=== PATIENT | female | born 1970 | race Caucasian/White ===

== ENCOUNTER 2019-03-19 19:30 | Emergency (ER) | payer OTHER ==
[~2019-03-19] VITALS: Ht 152.4 cm; Wt 56.7 kg
[2019-03-19] MEDS ORDERED: FAMOTIDINE 20MG/2ML VIAL IV STA (20:04)
[2019-03-19] MEDS ORDERED: MORPHINE SULFATE 4 MG/ML CPJ (NOT FOR IM USE) IV STA (20:04)
[2019-03-19] MEDS ORDERED: ONDANSETRON HCL 4MG/2ML INJ IV STA (20:04)
[2019-03-19] MEDS ORDERED: KETOROLAC 30MG/ML VIAL IV STA (20:04)
[2019-03-19] MEDS ORDERED: SODIUM CHLORIDE 0.9% 1,000 ML IV ONE (20:04)
[2019-03-19 21:23] LABS: COLOR URINE YELLOW (YELLOW); KETONES URINE NEGATIVE (NEGATIVE); LEUKOCYTE ESTERASE URINE NEGATIVE (NEGATIVE); NITRITE URINE NEGATIVE (NEGATIVE); OCCULT BLOOD URINE 2+ (NEGATIVE); PH URINE 7.5 (4.5-8.0); PROTEIN URINE 1+ (NEGATIVE); UROBILINOGEN URINE 0.2 E.U./dL (0.2-1.0)
[2019-03-19 21:27] LABS: CLARITY URINE HAZY (CLEAR)
[2019-03-19 21:29] LABS: CHLORIDE 102 mEq/L (98-107); PROTHROMBIN TIME 10.1 sec (9.6-11.0)
[2019-03-19 21:35] LABS: ETHANOL BLOOD < 10 mg/dL
[2019-03-19 21:38] LABS: *AMPHETAMINES SCREEN URINE NEGATIVE (NEGATIVE); *BARBITURATES SCREEN URINE NEGATIVE (NEGATIVE); *BENZODIAZEPINES SCREEN URINE NEGATIVE (NEGATIVE); CANNABINOID URINE SCREEN NEGATIVE (NEGATIVE); OPIATES URINE SCREEN NEGATIVE (NEGATIVE); PHENCYCLIDINE URINE SCREEN NEGATIVE (NEGATIVE)
[2019-03-19 21:39] LABS: *COCAINE SCREEN URINE NEGATIVE (NEGATIVE); HCG SCREEN NEGATIVE; METHADONE URINE SCREEN NEGATIVE (NEGATIVE)
[2019-03-19 21:44] LABS: BASOPHILS % 0.7 % (0.0-2.0); EOSINOPHILS % 0.6 % (0.0-5.0); HEMATOCRIT. 32.7 % (36.0-48.0); HEMOGLOBIN. 10.3 g/dL (12.0-16.0); LYMPHOCYTES % 9.8 % (20.0-50.0); MEAN CORPUSCULAR HEMOGLOBIN 20.1 pg (28.0-32.0); MEAN CORPUSCULAR VOLUME 63.6 fL (81.0-99.0); MONOCYTES % 7.4 % (2.0-8.0); NEUTROPHILS % 81.5 % (40.0-76.0); RED BLOOD CELL COUNT 5.13 mill/uL (4.2-5.4); RED CELL DISTRIBUTION WIDTH 18.3 % (11.6-14.6)
[2019-03-19 22:07] LABS: PLATELET 19 x1000/uL (130-400)
[2019-03-19 22:36] LABS: PLATELET ESTIMATE MARKEDLY DECREASED
[2019-03-20] MEDS ORDERED: METRONIDAZOLE 500 MG PREMIX 100 ML IV ONE
[2019-03-20] MEDS ORDERED: PIPERACILLIN/TAZ 3.375G PREMIX 50 ML IV ONE
[2019-03-20] MEDS ORDERED: ONDANSETRON HCL 4MG/2ML INJ IV ONE (01:00)
[2019-03-20] MEDS ORDERED: MORPHINE SULFATE 4 MG/ML CPJ (NOT FOR IM USE) IV ONE (01:00)
[2019-03-20 03:54] VITALS: BP 98/46
== END 2019-03-20 04:29 | disposition short-term general hospital (02) ==
LOC: ER 19:30
DX: R10.13 Epigastric pain (principal); R11.2 Nausea with vomiting, unspecified; R19.7 Diarrhea, unspecified; R68.83 Chills (without fever); D72.829 Elevated white blood cell count, unspecified; D69.6 Thrombocytopenia, unspecified; E78.00 Pure hypercholesterolemia, unspecified; I10 Essential (primary) hypertension; Z88.6 Allergy status to analgesic agent; Z98.890 Other specified postprocedural states
CPT/HCPCS: 36415; 74176; 76705; 80053; 80305; 80320; 81003; 81025; 83605; 83690; 83880; 84145; 84484; 84703; 85025; 85610; 87040; 87086; 93005; 96361; 96365; 96367; 96375; 96376; 99285; J1885; J2270; J2405; J2543; J3490; J7030; G0480